=== PATIENT | female | born 1935 | race Caucasian/White ===

== ENCOUNTER 2025-01-07 14:33 | Emergency (ER) | payer MEDICARE ==
[~2025-01-07] VITALS: Ht 160 cm; Wt 57.6 kg
[~2025-01-07 14:33] MED LIST: ACETAMINOPHEN325 M1 PO; ASPIRIN325 MG PO; CELEBREX100 MG PO; DULCOLAX SUPP10 MG PR; Docusate Sodium PO; ENALAPRIL MALEA20 MG PO; HYDROCODON-ACE1 EA11 PO; HYDROCODON-ACE1 EA12 PO; LEVOTHYROXINE75 MCG PO; Lidocaine Patch TP; MAXZIDE 37.5 M1 EACH PO; MIRALAX17 GM PO; Multivitamins/Minerals PO; NORVASC5 MG PO; ONDANSETRON ODT4 MG PO; PROTONIX40 MG/ML PO; SYNTHROID75 MCG PO
[2025-01-07 14:41] VITALS: TEMP 99.1
[2025-01-07 15:00] VITALS: PULSE 74; RESP 18; O2SAT 96
== END 2025-01-07 15:09 | disposition home or self-care (01) ==
LOC: ER 14:48
DX: Z00.00 Encounter for general adult medical examination without abnormal findings (principal); R41.0 Disorientation, unspecified; I10 Essential (primary) hypertension; E03.9 Hypothyroidism, unspecified
CPT/HCPCS: 99283